=== PATIENT | male | born 1970 | race African-American/Black ===

== ENCOUNTER 2018-08-11 18:07 | Emergency (ER) | payer SELFPAY ==
[~2018-08-11] VITALS: Ht 190.5 cm; Wt 73.0 kg
[2018-08-11 18:59] VITALS: BP 143/75
== END 2018-08-11 21:00 | disposition left against medical advice (07) ==
LOC: ER 18:07
DX: Z53.21 Procedure and treatment not carried out due to patient leaving prior to being seen by health care provider (principal)

== ENCOUNTER 2018-08-12 11:17 | Emergency (ER) | payer SELFPAY ==
[~2018-08-12] VITALS: Ht 190.5 cm; Wt 77.0 kg
[2018-08-12] MEDS ORDERED: KETOROLAC 30MG/ML VIAL IM ONE (12:30)
[2018-08-12] MEDS ORDERED: TETANUS, DIPHTHERIA, PERTUSSIS VAC/PF 0.5ML (>7YR OLD) IM ONE (12:30)
[2018-08-12 14:34] VITALS: BP 132/70
== END 2018-08-12 14:35 | disposition home or self-care (01) ==
LOC: ER 11:17
DX: M25.521 Pain in right elbow (principal); M54.2 Cervicalgia; F17.200 Nicotine dependence, unspecified, uncomplicated; F12.10 Cannabis abuse, uncomplicated; I25.2 Old myocardial infarction; Z88.0 Allergy status to penicillin
CPT/HCPCS: 73080; 90471; 90715; 96372; 99284; J1885

== ENCOUNTER 2019-01-26 13:28 | Emergency (ER) | payer SELFPAY ==
[~2019-01-26] VITALS: Ht 190.5 cm; Wt 78.0 kg
[2019-01-26] MEDS ORDERED: IBUPROFEN 600MG TABLET PO ONE (14:30)
[2019-01-26 15:55] VITALS: BP 137/72
== END 2019-01-26 16:06 | disposition home or self-care (01) ==
LOC: ER 13:28
DX: S50.12XA Contusion of left forearm, initial encounter (principal); I25.2 Old myocardial infarction; F12.10 Cannabis abuse, uncomplicated; F17.210 Nicotine dependence, cigarettes, uncomplicated; Z88.0 Allergy status to penicillin; W22.8XXA Striking against or struck by other objects, initial encounter; Y93.89 Activity, other specified; Y92.89 Other specified places as the place of occurrence of the external cause
CPT/HCPCS: 73090; 99283

== ENCOUNTER 2019-05-03 14:05 | Emergency (ER) | payer SELFPAY | END 2019-05-03 15:41 | disposition left against medical advice (07) | LOC: ER 14:17 | DX: F41.9 Anxiety disorder, unspecified (principal); Z53.21 Procedure and treatment not carried out due to patient leaving prior to being seen by health care provider ==

== ENCOUNTER 2020-08-01 15:04 | Emergency (ER) | payer MEDICAID ==
[~2020-08-01] VITALS: Ht 182.9 cm; Wt 82.0 kg
[2020-08-01] MEDS ORDERED: KETOROLAC 30MG/ML VIAL IM ONE (15:30)
[2020-08-01 17:05] VITALS: BP 141/70
== END 2020-08-01 17:07 | disposition home or self-care (01) ==
LOC: ER 15:04
DX: S19.9XXA Unspecified injury of neck, initial encounter (principal); M25.552 Pain in left hip; F12.10 Cannabis abuse, uncomplicated; I25.2 Old myocardial infarction; Z88.0 Allergy status to penicillin; V13.4XXA Pedal cycle driver injured in collision with car, pick-up truck or van in traffic accident, initial encounter; Y93.89 Activity, other specified; Y92.488 Other paved roadways as the place of occurrence of the external cause
CPT/HCPCS: 72040; 93005; 96372; 99283; J1885

== ENCOUNTER 2020-11-04 08:27 | Emergency (ER) | payer MEDICAID ==
[~2020-11-04] VITALS: Ht 175.3 cm; Wt 64.0 kg
[2020-11-04] MEDS ORDERED: SODIUM CHLORIDE 0.9% 1,000 ML IV ONE (08:45)
[2020-11-04 08:58] LABS: EOSINOPHILS % 0.5 % (0.0-5.0); HEMATOCRIT. 40.7 % (42.0-52.0); HEMOGLOBIN. 13.8 g/dL (14.0-18.0); LYMPHOCYTES % 36.5 % (20.0-50.0); MEAN CORPUSCULAR VOLUME 82.5 fL (80.0-94.0); MEAN PLATELET VOLUME 8.2 fl (7.4-10.4); MONOCYTES % 8.1 % (2.0-8.0); NEUTROPHILS % 53.9 % (40.0-76.0); PLATELET 181 x1000/uL (130-400); RED BLOOD CELL COUNT 4.94 mill/uL (4.7-6.1); RED CELL DISTRIBUTION WIDTH 14.5 % (11.6-14.6)
[2020-11-04 09:03] LABS: CHLORIDE 94 mEq/L (98-107)
[2020-11-04 09:07] LABS: ETHANOL BLOOD < 10 mg/dL
[2020-11-04 09:15] LABS: INR 1.3; PROTHROMBIN TIME 13.7 sec (9.6-11.0)
[2020-11-04] MEDS ORDERED: LOPERAMIDE HCL 2MG CAPSULE PO ONE (09:15)
[2020-11-04] MEDS ORDERED: ONDANSETRON 4MG ODT PO ONE (09:15)
[2020-11-04 10:34] LABS: CLARITY URINE CLEAR (CLEAR); COLOR URINE DARK YELLOW (YELLOW); KETONES URINE NEGATIVE (NEGATIVE); LEUKOCYTE ESTERASE URINE NEGATIVE (NEGATIVE); NITRITE URINE NEGATIVE (NEGATIVE); OCCULT BLOOD URINE NEGATIVE (NEGATIVE); PH URINE 6.5 (4.5-8.0); PROTEIN URINE TRACE (NEGATIVE); SPECIFIC GRAVITY URINE 1.011 (1.005-1.030)
[2020-11-04 11:01] LABS: *COCAINE SCREEN URINE NEGATIVE (NEGATIVE); CANNABINOID URINE SCREEN PRESUMTIVE POSITIVE (NEGATIVE); METHADONE URINE SCREEN NEGATIVE (NEGATIVE); OPIATES URINE SCREEN NEGATIVE (NEGATIVE); PHENCYCLIDINE URINE SCREEN NEGATIVE (NEGATIVE)
[2020-11-04 11:02] LABS: *AMPHETAMINES SCREEN URINE PRESUMTIVE POSITIVE (NEGATIVE); *BARBITURATES SCREEN URINE NEGATIVE (NEGATIVE); *BENZODIAZEPINES SCREEN URINE NEGATIVE (NEGATIVE)
[2020-11-04] MEDS ORDERED: LOPE2TAB26 MT (11:32)
[2020-11-04] MEDS ORDERED: ONDA4TAB5 MT (11:32)
[2020-11-04 12:00] VITALS: BP 124/72
== END 2020-11-04 12:04 | disposition home or self-care (01) ==
LOC: ER 08:27
DX: F11.13 Opioid abuse with withdrawal (principal); R11.2 Nausea with vomiting, unspecified; R19.7 Diarrhea, unspecified; R94.5 Abnormal results of liver function studies; I25.2 Old myocardial infarction; Z88.0 Allergy status to penicillin
CPT/HCPCS: 36415; 71045; 76705; 80053; 80305; 80320; 81003; 83690; 84484; 85025; 85610; 93005; 96360; 99285; J7030; Q0162; G0480